=== PATIENT | female | born 1955 | race Caucasian/White ===

== ENCOUNTER 2023-01-17 08:33 | Day surgery (SDC) | payer OTHER ==
[2023-01-16 10:10] LABS: Potassium 4.2 mEq/L (3.5-5.1)
--- NOTE | 2023-01-16 14:05 | EKG ---
Test Date: 2023-01-16 Test Time: 09:40:48 [employer]: ABDIRAHMAN MEASUREMENT RESULTS: Intervals: Rate: 58 MS: 136 QRSD: 72 QT: 404 QTc: 396 [place]: P: 66 MS: 136 QRS: 49 T: 29 INTERPRETIVE STATEMENTS: Sinus bradycardia Nonspecific T wave abnormality Abnormal ECG Compared to ECG 06/21/2015 02:58:31 T-wave abnormality now present Sinus rhythm no longer present ST (T wave) deviation no longer present Electronically Signed On 01-16-23 14:05:18 CDT by Victoriano Schneider
[2023-01-17] MEDS ORDERED: Ringers Lactate 1,000 ML IV ONE (08:57)
[2023-01-17] MEDS ORDERED: propofoL 200 MG/20 ML VIAL IV ONE (10:56)
[2023-01-17] MEDS ORDERED: LIDOCAINE 1% MPF 5 ML VIAL ONE (10:56)
[2023-01-17 13:10] VITALS: O2SAT 99
[2023-01-17 13:11] VITALS: BP 116/55; TEMP 97.6
== END 2023-01-17 12:05 | disposition home or self-care (01) ==
LOC: OR 08:33
PROVIDERS: ATTEND Surgery
PROC: 0DB98ZX Excision of Duodenum, Via Natural or Artificial Opening Endoscopic, Diagnostic (ICD-10-PCS; 2023-01-17)
PROC: 0DB78ZX Excision of Stomach, Pylorus, Via Natural or Artificial Opening Endoscopic, Diagnostic (ICD-10-PCS; 2023-01-17)
PROC: 0DB68ZX Excision of Stomach, Via Natural or Artificial Opening Endoscopic, Diagnostic (ICD-10-PCS; 2023-01-17)
PROC: 0DB48ZX Excision of Esophagogastric Junction, Via Natural or Artificial Opening Endoscopic, Diagnostic (ICD-10-PCS; 2023-01-17)
PROC: 0DBH8ZX Excision of Cecum, Via Natural or Artificial Opening Endoscopic, Diagnostic (ICD-10-PCS; principal; 2023-01-17 10:30)
PROC: 0DBN8ZX Excision of Sigmoid Colon, Via Natural or Artificial Opening Endoscopic, Diagnostic (ICD-10-PCS; 2023-01-17 10:30)
DX: R10.13 Epigastric pain (principal); K59.00 Constipation, unspecified; K64.8 Other hemorrhoids; K57.30 Diverticulosis of large intestine without perforation or abscess without bleeding; D12.0 Benign neoplasm of cecum; K29.80 Duodenitis without bleeding; K29.50 Unspecified chronic gastritis without bleeding; A04.8 Other specified bacterial intestinal infections
CPT/HCPCS: 93005; 80048; 36415; 88312; 88305; 45385; 45380; 43239; J2704; J2001; J7120